=== PATIENT | male | born 1965 | race African-American/Black ===

== ENCOUNTER 2020-04-13 01:24 | Emergency (ER) | payer MEDICAID ==
[~2020-04-13] VITALS: Ht 188 cm; Wt 82.0 kg
[2020-04-13 03:28] LABS: CLARITY URINE CLEAR (CLEAR); COLOR URINE YELLOW (YELLOW); KETONES URINE TRACE (NEGATIVE); LEUKOCYTE ESTERASE URINE NEGATIVE (NEGATIVE); NITRITE URINE NEGATIVE (NEGATIVE); OCCULT BLOOD URINE NEGATIVE (NEGATIVE); PROTEIN URINE 1+ (NEGATIVE); SPECIFIC GRAVITY URINE 1.012 (1.005-1.030); UROBILINOGEN URINE 0.2 E.U./dL (0.2-1.0)
[2020-04-13 03:40] LABS: HEMOGLOBIN 14.7 g/dL (14.0-18.0); MEAN CORPUSCULAR HEMOGLOBIN 26.5 pg (28.0-32.0); PLATELET 204 x1000/uL (130-400); RED BLOOD CELL COUNT 5.56 mill/uL (4.7-6.1); RED CELL DISTRIBUTION WIDTH 15.9 % (11.6-14.6)
[2020-04-13 03:44] LABS: CHLORIDE 105 mEq/L (98-107)
[2020-04-13 03:48] LABS: ETHANOL BLOOD < 10 mg/dL
[2020-04-13 03:49] LABS: *AMPHETAMINES SCREEN URINE PRESUMTIVE POSITIVE (NEGATIVE); *BARBITURATES SCREEN URINE NEGATIVE (NEGATIVE); *BENZODIAZEPINES SCREEN URINE NEGATIVE (NEGATIVE); *COCAINE SCREEN URINE PRESUMTIVE POSITIVE (NEGATIVE); METHADONE URINE SCREEN NEGATIVE (NEGATIVE); OPIATES URINE SCREEN NEGATIVE (NEGATIVE); PHENCYCLIDINE URINE SCREEN NEGATIVE (NEGATIVE)
[2020-04-13 03:50] LABS: CANNABINOID URINE SCREEN PRESUMTIVE POSITIVE (NEGATIVE)
[2020-04-13] MEDS ORDERED: ONDANSETRON 4MG ODT PO ONE (04:00)
[2020-04-13 05:00] VITALS: BP 132/92
== END 2020-04-13 06:00 | disposition home or self-care (01) ==
LOC: EDBD 02:23 → ER 02:23
DX: F14.10 Cocaine abuse, uncomplicated (principal); F15.10 Other stimulant abuse, uncomplicated; R10.9 Unspecified abdominal pain; I10 Essential (primary) hypertension; F31.9 Bipolar disorder, unspecified; Z88.6 Allergy status to analgesic agent; Z88.0 Allergy status to penicillin
CPT/HCPCS: 36415; 80053; 80305; 80320; 81003; 85027; 93005; 99284; Q0162; G0480

== ENCOUNTER 2020-06-02 15:39 | Emergency (ER) | payer MEDICAID ==
[~2020-06-02] VITALS: Ht 182.9 cm; Wt 77.0 kg
[2020-06-02] MEDS ORDERED: DICYCLOMINE 10 MG/5 ML ORAL SYR PO STA (16:17)
[2020-06-02] MEDS ORDERED: ONDANSETRON 4MG ODT PO STA (16:17)
[2020-06-02] MEDS ORDERED: VISCOUS LIDOCAINE 2% 15 ML UDC PO STA (16:17)
[2020-06-02] MEDS ORDERED: MAGNESIUM/ALUMINUM HYDROXIDE/SIMETHICONE 30ML UDC PO STA (16:17)
[2020-06-02] MEDS ORDERED: VISCOUS LIDOCAINE 2% 15 ML UDC PO NR (17:15)
[2020-06-02] MEDS ORDERED: MAGNESIUM/ALUMINUM HYDROXIDE/SIMETHICONE 30ML UDC PO NR (17:15)
[2020-06-02] MEDS ORDERED: DICYCLOMINE 10 MG/5 ML ORAL SYR PO NR (17:15)
[2020-06-02] MEDS ORDERED: ONDANSETRON 4MG ODT PO NR (17:15)
[2020-06-02 18:01] LABS: HEMATOCRIT. 50.2 % (42.0-52.0); HEMOGLOBIN. 16.2 g/dL (14.0-18.0); MEAN CORPUSCULAR HEMOGLOBIN 26.3 pg (28.0-32.0); MEAN CORPUSCULAR VOLUME 81.4 fL (80.0-94.0); RED BLOOD CELL COUNT 6.17 mill/uL (4.7-6.1); RED CELL DISTRIBUTION WIDTH 15.5 % (11.6-14.6)
[2020-06-02 18:15] LABS: CHLORIDE 103 mEq/L (98-107)
[2020-06-02 18:17] LABS: ETHANOL BLOOD < 10 mg/dL
[2020-06-02 18:21] LABS: PLATELET 212 x1000/uL (130-400)
[2020-06-02 18:23] LABS: PLATELET ESTIMATE NORMAL
[2020-06-02 18:32] LABS: CLARITY URINE CLEAR (CLEAR); COLOR URINE DARK YELLOW (YELLOW); KETONES URINE 2+ (NEGATIVE); LEUKOCYTE ESTERASE URINE TRACE (NEGATIVE); NITRITE URINE NEGATIVE (NEGATIVE); OCCULT BLOOD URINE NEGATIVE (NEGATIVE); PROTEIN URINE 2+ (NEGATIVE); SPECIFIC GRAVITY URINE 1.032 (1.005-1.030); UROBILINOGEN URINE 0.2 E.U./dL (0.2-1.0)
[2020-06-02 18:46] LABS: *AMPHETAMINES SCREEN URINE PRESUMTIVE POSITIVE (NEGATIVE); *BARBITURATES SCREEN URINE NEGATIVE (NEGATIVE); *BENZODIAZEPINES SCREEN URINE NEGATIVE (NEGATIVE); *COCAINE SCREEN URINE NEGATIVE (NEGATIVE); METHADONE URINE SCREEN NEGATIVE (NEGATIVE); OPIATES URINE SCREEN NEGATIVE (NEGATIVE); PHENCYCLIDINE URINE SCREEN NEGATIVE (NEGATIVE)
[2020-06-02 18:48] LABS: CANNABINOID URINE SCREEN PRESUMTIVE POSITIVE (NEGATIVE)
[2020-06-02] MEDS ORDERED: KETOROLAC 60MG/2ML VIAL IM ONE (19:00)
[2020-06-02 21:01] VITALS: BP 130/89
== END 2020-06-02 21:02 | disposition home or self-care (01) ==
LOC: ER 15:39
DX: R07.89 Other chest pain (principal); R10.33 Periumbilical pain; I10 Essential (primary) hypertension; F31.9 Bipolar disorder, unspecified; Z88.0 Allergy status to penicillin; Z88.6 Allergy status to analgesic agent
CPT/HCPCS: 36415; 74176; 80053; 80305; 80307; 80320; 80329; 81003; 83690; 84484; 85025; 93005; 96372; 99285; J1885; Q0162; G0480

== ENCOUNTER 2021-01-03 10:27 | Emergency (ER) | payer MEDICAID ==
[~2021-01-03] VITALS: Ht 188 cm; Wt 86.0 kg
[2021-01-03 10:28] VITALS: BP 133/62
== END 2021-01-03 11:08 | disposition left against medical advice (07) ==
LOC: ER 10:27
DX: R07.89 Other chest pain (principal); I10 Essential (primary) hypertension; Z88.0 Allergy status to penicillin; Z88.2 Allergy status to sulfonamides; Z88.6 Allergy status to analgesic agent; Z86.59 Personal history of other mental and behavioral disorders
CPT/HCPCS: 99283

== ENCOUNTER 2021-04-11 00:10 | Emergency (ER) | payer MEDICAID ==
[~2021-04-11] VITALS: Ht 182.9 cm; Wt 86.0 kg
[2021-04-11] MEDS ORDERED: ACETAMINOPHEN 325MG TABLET PO STA (00:31)
[2021-04-11 01:00] VITALS: BP 160/96
[2021-04-11 01:40] LABS: BASOPHILS % 0.4 % (0.0-2.0); EOSINOPHILS % 1.5 % (0.0-5.0); HEMATOCRIT. 43.1 % (42.0-52.0); HEMOGLOBIN. 14.4 g/dL (14.0-18.0); LYMPHOCYTES % 26.1 % (20.0-50.0); MEAN CORPUSCULAR HEMOGLOBIN 26.1 pg (28.0-32.0); MEAN CORPUSCULAR VOLUME 77.8 fL (80.0-94.0); MEAN PLATELET VOLUME 8.5 fl (7.4-10.4); MONOCYTES % 5.9 % (2.0-8.0); NEUTROPHILS % 66.1 % (40.0-76.0); PLATELET 231 x1000/uL (130-400); RED BLOOD CELL COUNT 5.53 mill/uL (4.7-6.1); RED CELL DISTRIBUTION WIDTH 15.3 % (11.6-14.6)
[2021-04-11 01:46] LABS: CHLORIDE 105 mEq/L (98-107)
[2021-04-11 01:52] LABS: ETHANOL BLOOD 20 mg/dL
== END 2021-04-11 03:48 | disposition home or self-care (01) ==
LOC: ER 00:10
DX: R07.89 Other chest pain (principal); I10 Essential (primary) hypertension; Z53.21 Procedure and treatment not carried out due to patient leaving prior to being seen by health care provider; Z88.0 Allergy status to penicillin; Z88.6 Allergy status to analgesic agent; Z86.59 Personal history of other mental and behavioral disorders
CPT/HCPCS: 36415; 80053; 80320; 85025; 93005; 99284; G0480

== ENCOUNTER 2021-07-05 07:08 | Emergency (ER) | payer MEDICAID ==
[~2021-07-05] VITALS: Ht 172.7 cm; Wt 70.0 kg
[2021-07-05 07:16] VITALS: BP 148/102
== END 2021-07-05 08:10 | disposition home or self-care (01) ==
LOC: ER 07:08
DX: R07.89 Other chest pain (principal); F60.0 Paranoid personality disorder; I10 Essential (primary) hypertension; F31.9 Bipolar disorder, unspecified; Z88.0 Allergy status to penicillin; Z88.6 Allergy status to analgesic agent
CPT/HCPCS: 93005; 99283

== ENCOUNTER 2021-11-01 03:32 | Emergency (ER) | payer MEDICAID ==
[~2021-11-01] VITALS: Ht 182.9 cm; Wt 86.0 kg
[2021-11-01 04:24] LABS: CHLORIDE 103 mEq/L (98-107)
[2021-11-01 04:38] LABS: BASOPHILS % 0.6 % (0.0-2.0); EOSINOPHILS % 3.1 % (0.0-5.0); HEMATOCRIT. 43.5 % (42.0-52.0); HEMOGLOBIN. 14.2 g/dL (14.0-18.0); LYMPHOCYTES % 23.8 % (20.0-50.0); MEAN CORPUSCULAR HEMOGLOBIN 25.3 pg (28.0-32.0); MEAN CORPUSCULAR VOLUME 77.9 fL (80.0-94.0); MEAN PLATELET VOLUME 8.3 fl (7.4-10.4); NEUTROPHILS % 67.5 % (40.0-76.0); PLATELET 252 x1000/uL (130-400); RED BLOOD CELL COUNT 5.59 mill/uL (4.7-6.1); RED CELL DISTRIBUTION WIDTH 16.1 % (11.6-14.6)
[2021-11-01 05:32] VITALS: BP 131/97
== END 2021-11-01 05:41 | disposition home or self-care (01) ==
LOC: ER 03:32
DX: R07.89 Other chest pain (principal); I10 Essential (primary) hypertension; F31.9 Bipolar disorder, unspecified; Z88.6 Allergy status to analgesic agent; Z88.0 Allergy status to penicillin
CPT/HCPCS: 36415; 71045; 80053; 83880; 84484; 85025; 85379; 93005; 99285

== ENCOUNTER 2022-01-19 00:40 | Emergency (ER) | payer MEDICAID ==
[~2022-01-19] VITALS: Ht 182.9 cm; Wt 80.0 kg
[2022-01-19 02:49] VITALS: BP 138/84
== END 2022-01-19 03:01 | disposition left against medical advice (07) ==
LOC: ER 00:40
DX: R07.89 Other chest pain (principal); Z88.0 Allergy status to penicillin; Z88.6 Allergy status to analgesic agent; Z98.890 Other specified postprocedural states
CPT/HCPCS: 93005; 99283

== ENCOUNTER 2022-10-01 01:46 | Emergency (ER) | payer MEDICAID ==
[~2022-10-01] VITALS: Ht 185.4 cm; Wt 87.0 kg
[2022-10-01 01:52] VITALS: BP 143/97
== END 2022-10-01 13:04 | disposition left against medical advice (07) ==
LOC: ER 01:46
DX: Z53.21 Procedure and treatment not carried out due to patient leaving prior to being seen by health care provider (principal)
CPT/HCPCS: 93005

== ENCOUNTER 2024-01-16 19:51 | Emergency (ER) | payer MEDICAID ==
[~2024-01-16] VITALS: Ht 185.4 cm; Wt 79.0 kg
[2024-01-16 20:06] VITALS: BP 147/95; PULSE 103; RESP 16; TEMP 98.3; O2SAT 98
== END 2024-01-16 20:45 | disposition left against medical advice (07) ==
LOC: ER 19:51
DX: R07.89 Other chest pain (principal); R06.02 Shortness of breath; I10 Essential (primary) hypertension
CPT/HCPCS: 99283